=== PATIENT | male | born 2000 | race African-American/Black ===

== ENCOUNTER 2019-03-20 13:52 | Inpatient (IN) ==
[2019-03-20 14:19] LABS: Basophils # 0.1 10*3/uL (0.0-0.2); Basophils % 0.6 % (0.0-0.8); Eosinophils # 0.1 10*3/uL (0.0-0.87); Hematocrit 47.4 VOL% (42.0-52.0); Hemoglobin 15.6 GM/DL (14.0-18.0); Immature Granulocytes % 0.4 %; Immature Granulocytes Absolute 0.03 #; Lymphocytes # 2.1 10*3/uL (1.4-4.0); Lymphocytes % 25.5 % (21.2-54.2); Mean Corpuscular HGB Conc 32.9 GM/DL (32-36); Mean Corpuscular Volume 99.6 FL (87-102); Mean Platelet Volume 10.7 FL (9.6-12.0); Monocytes % 5.9 % (1.7-12.7); Neutrophils % 66.6 % (38.7-73.9); Platelet Count 279 T/CUMM (130-400); Red Blood Count 4.76 MC/CUMM (3.8-5.5); Red Cell Distribution Width 12.3 % (9.3-17.3); White Blood Count 8.3 T/CUMM (4-12)
[2019-03-20 14:49] LABS: Bilirubin,Total 0.8 MG/DL (0.2-1.0); Calcium 10.1 MG/DL (8.5-10.1); Osmolality,Calculated 281.3 MOS/KG (273-304); Total Protein 8.6 G/DL (6.4-8.3)
[2019-03-20] MEDS ORDERED: ONDANSETRON 4 MG/2 ML VIAL IV STA (15:56)
[2019-03-20] MEDS ORDERED: HYDROmorphone 2 MG/1 ML VIAL IV PRN (16:10)
[2019-03-20] MEDS ORDERED: ACETAMINOPHEN 325 MG TABLET PO PRN (16:10)
[2019-03-20] MEDS ORDERED: KETOROLAC 15 MG/1 ML VIAL IV PRN (16:10)
[2019-03-20] MEDS ORDERED: ONDANSETRON 4 MG/2 ML VIAL IV PRN (16:10)
[2019-03-20] MEDS ORDERED: ALBUTEROL/IPRATROPIUM 3 ML NEB RESP TX PRN (16:10)
[2019-03-20 16:16] LABS: Apearance,Urine Slightly Hazy (Clear); Bilirubin,Urine Negative (Negative); Blood, Urine Negative (Negative); Glucose,Urine (UA) Negative (Negative); Ketones,Urine Negative (Negative); Mucus,Urine Occasional /LPF (Occasional); Nitrite,Urine Negative (Negative); Protein,Urine 30 MG/DL; RBC,Urine 3 /HPF (0-4); Squamous Epithelial Cell,Urine Occasional /HPF (0-10); Urine Color Yellow (Yellow); Urine Specific Gravity > 1.060 (1.001-1.035); Urine Urobilinogen < 2.0 EU/DL (0.2-1.0)
[2019-03-20] MEDS: LACTATED RINGERS 1,000 ML IV SCH (16:55)
[2019-03-20] MEDS: cefOXitin 2,000 MG in SYRINGE 1 EACH IV SCH (19:26)
[2019-03-20] MEDS: FAMOTIDINE 20 MG/2 ML VIAL IV SCH (21:24)
[2019-03-21] MEDS: cefOXitin 2,000 MG in SYRINGE 1 EACH IV SCH ×5 (00:28→23:55)
[2019-03-21] MEDS: LACTATED RINGERS 1,000 ML IV SCH ×3 (01:59→23:55)
[2019-03-21 04:47] LABS: Basophils # 0.1 10*3/uL (0.0-0.2); Basophils % 0.6 % (0.0-0.8); Eosinophils # 0.2 10*3/uL (0.0-0.87); Eosinophils % 2.1 % (0.00-10.9); Hematocrit 42.9 VOL% (42.0-52.0); Hemoglobin 14.5 GM/DL (14.0-18.0); Immature Granulocytes % 0.2 %; Immature Granulocytes Absolute 0.02 #; Lymphocytes # 2.3 10*3/uL (1.4-4.0); Lymphocytes % 26.3 % (21.2-54.2); Mean Corpuscular HGB Conc 33.8 GM/DL (32-36); Mean Corpuscular Volume 98.6 FL (87-102); Mean Platelet Volume 11.1 FL (9.6-12.0); Monocytes % 8.3 % (1.7-12.7); Neutrophils % 62.5 % (38.7-73.9); Platelet Count 266 T/CUMM (130-400); Red Blood Count 4.35 MC/CUMM (3.8-5.5); Red Cell Distribution Width 12.2 % (9.3-17.3); White Blood Count 8.5 T/CUMM (4-12)
[2019-03-21 05:27] LABS: Calcium 9.6 MG/DL (8.5-10.1); Osmolality,Calculated 281.3 MOS/KG (273-304)
[2019-03-21] MEDS: FAMOTIDINE 20 MG/2 ML VIAL IV SCH ×2 (10:08→20:39)
[2019-03-21] MEDS ORDERED: LIDOCAINE 1% 5 ML VIAL ONE (12:24)
[2019-03-21] MEDS ORDERED: EPINEPHrine 1 MG/ML VIAL ONE (12:24)
[2019-03-21] MEDS ORDERED: BUPIVACAINE 0.5% 50 ML VIAL ONE (12:24)
[2019-03-21] MEDS ORDERED: DEXAMETHASONE 4 MG/1 ML VIAL ONE ×2 (12:24→15:27)
[2019-03-21 14:34] LABS: Apearance,Urine CLEAR (Clear); Bilirubin,Urine Negative (Negative); Blood, Urine Negative (Negative); Glucose,Urine (UA) Negative (Negative); Ketones,Urine 20 mg/dL (Negative); Mucus,Urine Occasional /LPF (Occasional); Nitrite,Urine Negative (Negative); Protein,Urine 100 MG/DL; RBC,Urine 10 /HPF (0-4); Urine Color Amber (Yellow); Urine Specific Gravity 1.047 (1.001-1.035); Urine Urobilinogen < 2.0 EU/DL (0.2-1.0); WBC,Urine 3 /HPF (0-6)
[2019-03-21] MEDS ORDERED: SEVOFLURANE 1 UNIT/15 MINUTE INH ONE (15:26)
[2019-03-21] MEDS ORDERED: PROPOFOL 200 MG/20 ML VIAL IV ONE (15:26)
[2019-03-21] MEDS ORDERED: ONDANSETRON 4 MG/2 ML VIAL ONE (15:27)
[2019-03-21] MEDS ORDERED: ROCURONIUM 100 MG/10 ML VIAL IV ONE (15:27)
[2019-03-21] MEDS ORDERED: NEOSTIGMINE 10 MG/10 ML VIAL ONE (15:27)
[2019-03-21] MEDS ORDERED: fentaNYL 100 MCG/2 ML VIAL ONE (15:27)
[2019-03-21] MEDS ORDERED: MIDAZOLAM 2 MG/2 ML VIAL ONE (15:27)
[2019-03-21] MEDS ORDERED: LACTATED RINGERS 1,000 ML IV ONE (15:27)
[2019-03-21] MEDS ORDERED: GLYCOPYRROLATE 0.4 MG/2 ML VIAL ONE (15:27)
[2019-03-21] MEDS ORDERED: KETOROLAC 30 MG/1 ML VIAL ONE (15:27)
[2019-03-21] MEDS ORDERED: ONDANSETRON 4 MG/2 ML VIAL IV PRN (15:38)
[2019-03-21] MEDS: HYDROmorphone 2 MG/1 ML VIAL IV PRN ×4 (15:52→19:43)
[2019-03-22] MEDS: HYDROmorphone 2 MG/1 ML VIAL IV PRN ×5 (01:22→21:34)
[2019-03-22 04:42] LABS: Basophils % 0.1 % (0.0-0.8); Hemoglobin 12.4 GM/DL (14.0-18.0); Immature Granulocytes % 0.5 %; Immature Granulocytes Absolute 0.06 #; Lymphocytes % 7.3 % (21.2-54.2); Mean Corpuscular HGB Conc 33.5 GM/DL (32-36); Mean Corpuscular Volume 97.9 FL (87-102); Mean Platelet Volume 11.4 FL (9.6-12.0); Monocytes % 6.6 % (1.7-12.7); Neutrophils % 85.5 % (38.7-73.9); Platelet Count 252 T/CUMM (130-400); Red Blood Count 3.78 MC/CUMM (3.8-5.5); Red Cell Distribution Width 12.2 % (9.3-17.3)
[2019-03-22 05:11] LABS: Albumin 3.5 G/DL (3.4-5.0); Calcium 9.4 MG/DL (8.5-10.1); Osmolality,Calculated 279.5 MOS/KG (273-304); Total Protein 6.4 G/DL (6.4-8.3)
[2019-03-22] MEDS: LACTATED RINGERS 1,000 ML IV SCH ×3 (05:59→21:33)
[2019-03-22] MEDS: cefOXitin 2,000 MG in SYRINGE 1 EACH IV SCH ×3 (06:01→17:00)
[2019-03-22] MEDS: FAMOTIDINE 20 MG/2 ML VIAL IV SCH ×2 (08:35→21:28)
[2019-03-22] MEDS ORDERED: PROMETHAZINE 25 MG/1 ML VIAL IM PRN (10:37)
[2019-03-22] MEDS: KETOROLAC 15 MG/1 ML VIAL IV SCH ×2 (11:47→16:53)
[2019-03-23] MEDS: cefOXitin 2,000 MG in SYRINGE 1 EACH IV SCH ×4 (00:03→18:10)
[2019-03-23] MEDS: KETOROLAC 15 MG/1 ML VIAL IV SCH ×5 (00:07→22:34)
[2019-03-23 04:55] LABS: Basophils % 0.5 % (0.0-0.8); Eosinophils # 0.1 10*3/uL (0.0-0.87); Eosinophils % 0.9 % (0.00-10.9); Hemoglobin 12.3 GM/DL (14.0-18.0); Immature Granulocytes % 0.4 %; Immature Granulocytes Absolute 0.03 #; Lymphocytes # 2.3 10*3/uL (1.4-4.0); Lymphocytes % 29.6 % (21.2-54.2); Mean Corpuscular HGB Conc 33.2 GM/DL (32-36); Mean Platelet Volume 10.8 FL (9.6-12.0); Monocytes % 6.2 % (1.7-12.7); Neutrophils % 62.4 % (38.7-73.9); Platelet Count 214 T/CUMM (130-400); Red Cell Distribution Width 12.3 % (9.3-17.3); White Blood Count 7.9 T/CUMM (4-12)
[2019-03-23] MEDS: LACTATED RINGERS 1,000 ML IV SCH ×5 (05:59→22:40)
[2019-03-23] MEDS: FAMOTIDINE 20 MG/2 ML VIAL IV SCH ×2 (09:17→21:33)
[2019-03-24] MEDS: cefOXitin 2,000 MG in SYRINGE 1 EACH IV SCH ×3 (00:27→13:56)
[2019-03-24] MEDS: KETOROLAC 15 MG/1 ML VIAL IV SCH ×4 (04:43→23:50)
[2019-03-24] MEDS: LACTATED RINGERS 1,000 ML IV SCH ×2 (06:01→15:47)
[2019-03-24] MEDS: FAMOTIDINE 20 MG/2 ML VIAL IV SCH ×2 (08:15→21:43)
[2019-03-25] MEDS: KETOROLAC 15 MG/1 ML VIAL IV SCH ×2 (04:46→10:30)
[2019-03-25] MEDS: FAMOTIDINE 20 MG/2 ML VIAL IV SCH (08:03)
[2019-03-25] MEDS: HYDROmorphone 2 MG/1 ML VIAL IV PRN (12:23)
[2019-03-25 12:45] VITALS: BP 147/77
== END 2019-03-25 14:05 | disposition home or self-care (01) | DRG 330 ==
LOC: N.ED 13:52 → N.EDINP 16:10 → N.5E 17:14
PROVIDERS: ADMIT Surgery; ATTEND Surgery